=== PATIENT | female | born 1995 | race Two or more races ===

== ENCOUNTER 2018-07-13 00:12 | Emergency (ER) | payer MEDICAID ==
--- NOTE | 2018-07-13 01:15 | ER Document Report ---
ED General - General Chief Complaint: Suicidal Ideation Stated Complaint: PSYCH Time Seen by Provider: 07/13/18 00:58 Notes: Patient is a 22-year-old female who presents with complaint of depression. Patient has a history of chronic depression. She has had thoughts of suicide in the past and start her self cutting and overdoses. Patient says she was on previous medications to help with depression however she stopped taking them in April she ran out of insurance. She said the medications did not help any help. She says her plan tonight was to cut herself. She will not be specific as to why she is depressed. She says is just "a lot of things". Patient's only other complaint is of back pain which has been ongoing for 1 month. She says she is at work. She says she has no pain when she still but has pain when she twists or turns. Pain is over the left side of her lower back. TRAVEL OUTSIDE OF THE [place] IN LAST 30 DAYS: No - Related Data Allergies/Adverse Reactions: No Known Allergies Allergy (Unverified 07/13/18 00:25) Past Medical History - Social History Smoking Status: Never Smoker Frequency of alcohol use: None Drug Abuse: None Family History: Reviewed & Not Pertinent Review of Systems - Review of Systems Notes: My Normal Review Basic REVIEW OF SYSTEMS: CONSTITUTIONAL : Denies fever, chills, or sweats. Denies recent illness. RESPIRATORY: Denies cough, cold, or chest congestion. Denies shortness of breath, difficulty breathing, or wheezing. GASTROINTESTINAL: Denies abdominal pain. Denies nausea, vomiting, or diarrhea. Denies constipation. Last BM: GENITOURINARY: Denies difficulty urinating, painful urination, burning, frequency, or blood in urine. MUSCULOSKELETAL: Back pain SKIN: Denies rash or skin lesions. NEUROLOGICAL: Denies altered mental status or loss of consciousness. Denies headache. Denies weakness or paralysis or loss of use of either side. Denies problems with gait or speech. Denies sensory or motor loss. PSYCHIATRIC: Depression. Suicidal ideations ALL OTHER SYSTEMS REVIEWED AND NEGATIVE. Physical Exam - Vital signs Vitals: Temp Pulse Resp BP Pulse Ox 99.0 F 79 16 133/87 H 98 07/13/18 00:22 07/13/18 00:22 07/13/18 00:22 07/13/18 00:22 07/13/18 00:22 - Notes Notes: General Appearance: Well nourished, alert, cooperative, no acute distress, no obvious discomfort. Well-appearing. Vitals: reviewed, See vital signs table. Head: no swelling or tenderness to the head Eyes: PERRL, EOMI, Conjuctiva clear Mouth: No decreasd moisture Lungs: No wheezing, No rales, No rhonci, No accessory muscle use, good air exchange bilaterally. Heart: Normal rate, Regular rythm, No murmur, no rub Back: No reproducible pain palpation of the back. Some pain with twisting. Abdomen: Normal BS, soft, No rigidity, No abdominal tenderness, No guarding, no rebound, no abdominal masses, no organomegaly Extremities: strength 5/5 in all extremities, good pulses in all extremities, no swelling or tenderness in the extremities, no edema. Skin: warm, dry, appropriate color, no rash Neuro: speech clear, oriented x 3, normal affect, responds appropriately to questions. Course - Re-evaluation Re-evalutation: 07/13/18 05:15 Patient still has not had her blood work drawn. The nurse says that she has been unable to draw the blood work as patient is difficult stick. She says that she will have lab come down and draw the blood. 07/13/18 05:56 Blood work is still pending. Once labs are back and reviewed by the oncoming ED physician patient be determined whether or not she is medically stable for m ental health evaluation. I do not suspect her to have any abnormal lab results that she is usually an otherwise healthy young 22-year-old female. Dictation of this chart was performed using voice recognition software; therefore, there may be some unintended grammatical errors. - Vital Signs Vital signs: Temp Pulse Resp BP Pulse Ox 99.0 F 79 16 133/87 H 98 07/13/18 00:22 07/13/18 00:22 07/13/18 00:22 07/13/18 00:22 07/13/18 00:22 - Laboratory Laboratory results interpreted by me: 07/13/18 01:25 Urine Blood LARGE H Discharge - Discharge Clinical Impression: Suicidal ideations Depression Qualifiers: Depression Type: unspecified Qualified Code(s): F32.9 - Major depressive disorder, single episode, unspecified
[2018-07-13 02:31] LABS: APPEARANCE,URINE SLIGHTLY-CLOUDY; BILIRUBIN,URINE NEGATIVE (NEGATIVE); COLOR,URINE YELLOW; GLUCOSE, URINE NEGATIVE (NEGATIVE); KETONES,URINE NEGATIVE (NEGATIVE); LEUKOCYTE ESTERASE,URINE NEGATIVE (NEGATIVE); NITRITE,URINE NEGATIVE (NEGATIVE); PROTEIN,URINE NEGATIVE (NEGATIVE); URINE SPECIFIC GRAVITY 1.024; UROBILINOGEN,URINE NEGATIVE mg/dL (<2.0)
[2018-07-13 02:51] LABS: URINE AMPHETAMINES SCREEN NEGATIVE; URINE BARBITURATES SCREEN NEGATIVE; URINE BENZODIAZEPINES SCREEN NEGATIVE; URINE COCAINE SCREEN NEGATIVE; URINE MARIJUANA (THC) SCREEN UNCONFIRMED POSITIVE; URINE METHADONE SCREEN NEGATIVE; URINE PHENCYCLIDINE SCREEN NEGATIVE
[2018-07-13 06:50] LABS: ABSOLUTE EOSINOPHILS # (AUTO) 0.3 10^3/uL (0.0-0.6); ABSOLUTE LYMPHOCYTES (AUTO) 2.8 10^3/uL (0.5-4.7); ABSOLUTE MONOCYTES (AUTO) 0.6 10^3/uL (0.1-1.4); ABSOLUTE NEUT (AUTO) 4.8 10^3/uL (1.7-8.2); BASOPHILS % (AUTO) 0.5 % (0-2); EOSINOPHILS % (AUTO) 3.5 % (0-6); HEMATOCRIT 34.9 % (36.0-47.0); HEMOGLOBIN 11.7 g/dL (12.0-15.5); LYMPHOCYTES % (AUTO) 33.3 % (13-45); MEAN CORPUSCULAR HEMOGLOBIN 25.6 pg (27.0-33.4); MEAN CORPUSCULAR HGB CONC 33.5 g/dL (32.0-36.0); MEAN CORPUSCULAR VOLUME 77 fl (80-97); MONOCYTES % (AUTO) 6.6 % (3-13); PLATELET COUNT 304 10^3/uL (150-450); RED BLOOD COUNT 4.56 10^6/uL (3.72-5.28); RED CELL DISTRIBUTION WIDTH 16.1 % (11.5-14.0); SEGMENTED NEUTROPHILS % (AUTO) 56.1 % (42-78); TOTAL CELLS COUNTED % (AUTO) 100 %; WHITE BLOOD COUNT 8.5 10^3/uL (4.0-10.5)
--- NOTE | 2018-07-13 06:56 | EKG REPORT ---
SEVERITY:- NORMAL ECG - SINUS RHYTHM : Confirmed by: Amaya Linton 13-Jul-2018 06:56:35
[2018-07-13 07:16] LABS: ALANINE AMINOTRANSFERASE 15 U/L (9-52); ALKALINE PHOSPHATASE 63 U/L (38-126); ANION GAP 11 (5-19); ASPARTATE AMINO TRANSFERASE 20 U/L (14-36); BILIRUBIN,DIRECT 0.2 mg/dL (0.0-0.4); BILIRUBIN,TOTAL 0.3 mg/dL (0.2-1.3); BLOOD UREA NITROGEN 11 mg/dL (7-20); CARBON DIOXIDE 25 mmol/L (22-30); CHLORIDE 106 mmol/L (98-107); GLUCOSE 140 mg/dL (75-110); TOTAL PROTEIN 6.9 g/dL (6.3-8.2)
[2018-07-13 07:19] LABS: ACETAMINOPHEN < 10 ug/mL (10-30); ALCOHOL < 10 mg/dL (NONE DETECTED); SALICYLATE < 1.0 mg/dL (2.0-20.0)
--- NOTE | 2018-07-13 10:07 | ER Document Report ---
Doctor's Note Notes: 07/13/18 10:06 Patient seen and evaluated. She was sleeping when I entered the room and states that she is very tired and would like to go back to sleep. She does not wish to speak about her suicidal thoughts saying that she is feeling better and not feeling suicidal now since she was sleeping. I reviewed her lab work which is unremarkable. She is medically cleared for further psych evaluation. Psych eval this morning is pending still. Despite pending psych evaluation.
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
[2018-07-13] MEDS ORDERED: DIPHENHYDRAMINE HCL 50 MG CAPSULE PO ONE (23:38)
[2018-07-14 07:51] VITALS: BP 142/101
--- NOTE | 2018-07-14 09:09 | PSYCHOLOGICAL NOTE ---
Psych Note - Psych Note Date seen by psych provider: 07/14/18 Time seen by psych provider: 07:00 Psych Note: Reason for consult: SI/depression 1st re-evaluation Contact Permissions: [facility] Patient is a 22 yo female presenting to the ED voluntarily with [facility] for concerns of SI with plan to OD. Patient reports a hx of intermittent SI and cutting as a maladaptive coping skill. She has not acted on her urges to cut in several years and utilizes distraction techniques such as saying no, playing video games, drawing, or watching something funny on TV. She reports utilizing same for SI successfully. Both are triggered by stress and pt. has increased stress due to job loss and finances. She is currently looking for a new job and reports is currently stable with 3 room mates and insurance. She denies SI today or urge to cut. Patient is eating breakfast and reports "I'm good" with "okay" mood and states she's ready to go home. Discussed increasing supports around her and pt has disclosed to her room mates that she is in the ED but doesn't "want to put this on them". Rather, she will utilize friend supports identified as Derek in [facility] whom she talks with and Wendy who is local. She verbalizes her plan moving forward as calling [facility], taking medication, and counseling. Pt is agreeable with discharge to [facility] for additional support. Provided psychoeducation on importance of psychiatric medication compliance and pt verbalized understanding. Patient is alert and oriented x 4. Mood is euthymic "ok" with mood congruent affect. Patient denies SI, HI, and AV/H, does not appear to be responding to internal stimuli, and no delusions were noted. Conversational speech was WNL for rate, tone, and prosody. Eye contact was intermittently well maintained as patient was eating breakfast during evaluation. Thought processes were linear, organized, and rational. Intellectual abilities were estimated within the average range. Attention/concentration was WNL while, insight, judgment, and impulse control were fair. Diagnosis: 296.80 (F31.9) Unspecified bipolar and related disorder per history provided by patient 309.81 (F43.10) PTSD per history provided by patient Clinician notes cluster B personality characteristics Medication recommendations as per psychiatric provider, Dr. Acevedo are as follows: No medication recommendations at this time. Impression/Plan: Patient is psychiatrically clear from acute psychiatric services as she denies SI today, reports intermittent passive suicidal ideation i.e. no plans means or intent and demonstrated good insight, judgment and impulse control by reaching out to [facility] and she identified and uses positive coping skills to distract from cutting and SI. Patient is recommended to engage in psychiatric medication management to stabilize mood and counseling to increase positive coping skills. Patient verbalized interest, willingness, and intent to follow through with OP. Patient was educated on the importance of taking medication as prescribed. Plan is for patient to discharge to [facility] for continued assistance in obtaining outpatient mental health services. Consulted Dr. Jones in the care and treatment of this patient and ED physician who is in agreement with disposition and recommendation.
--- NOTE | 2018-07-14 09:37 | ER Document Report ---
Doctor's Note Notes: 07/14/18 09:35 This is a 22-year-old female that had presented yesterday with depression and suicidal ideation. She was observed overnight and evaluated by psychology this morning. She does states she is feeling better. She is ambulating around the room and looks forward to discharge. The plan will be for her to follow-up with [facility]. [facility] will be picking her up to bring her home. Patient is clinically stable for discharge.
--- NOTE | 2018-07-14 17:51 | EKG REPORT ---
SEVERITY:- NORMAL ECG - SINUS RHYTHM : Confirmed by: Bridget Vides MD 14-Jul-2018 17:51:21
== END 2018-07-14 09:49 | disposition home or self-care (01) ==
LOC: ER 00:12
DX: F32.9 Major depressive disorder, single episode, unspecified (principal); M54.5 Low back pain; R45.851 Suicidal ideations; Z91.5 Personal history of self-harm
CPT/HCPCS: 93005; 99285; 36415; 80307 ×4; 84703; 85025; 80053; 81001; 93010; J3490